=== PATIENT | female | born 1995 | race African-American/Black ===

== ENCOUNTER 2018-02-17 10:29 | Emergency (ER) | payer OTHER ==
[~2018-02-17] VITALS: Ht 170.2 cm; Wt 83.9 kg
[2018-02-17 10:41] VITALS: BP 147/83
== END 2018-02-17 13:24 | disposition left against medical advice (07) ==
LOC: ER 10:29
DX: S51.012A Laceration without foreign body of left elbow, initial encounter (principal); Z53.21 Procedure and treatment not carried out due to patient leaving prior to being seen by health care provider; X58.XXXA Exposure to other specified factors, initial encounter; Y93.89 Activity, other specified; Y99.8 Other external cause status; Y92.89 Other specified places as the place of occurrence of the external cause